=== PATIENT | female | born 1970 | race Caucasian/White ===

== ENCOUNTER → 2016-11-24 | Outpatient (CLI) | payer OTHER ==
[2014-08-14 14:38] VITALS: BP 112/65
[2016-11-24 20:46] LABS: ALBUMIN 3.9 g/dL (3.4-5.0); ALBUMIN/GLOBULIN RATIO 1.1 (1.0-1.7); CALCIUM 8.9 mg/dL (8.5-10.1); CHOLESTEROL/HDL RATIO 2.5; GFR 59.7; POTASSIUM 3.5 mmol/L (3.5-5.1); TOTAL BILIRUBIN 0.3 mg/dL (0.2-1.0); TOTAL PROTEIN 7.5 g/dL (6.4-8.2)
== END | disposition home or self-care (01) ==
LOC: LAB 16:38
PROVIDERS: ATTEND Psychiatry & Neurology Psychiatry
DX: Z79.899 Other long term (current) drug therapy (principal)
CPT/HCPCS: 36415; 80053; 80061; 84443

== ENCOUNTER → 2018-08-18 | Outpatient (CLI) | payer MEDICARE, OTHER ==
[2014-08-14 14:38] VITALS: BP 112/65
--- NOTE | 2018-08-18 09:41 | RAD ---
Indication:PELVIC PAIN, OVARIAN CYST TECHNIQUE: Grayscale, color Doppler and spectral waveform images of the pelvis obtained. COMPARISON:None FINDINGS: Uterus is surgically absent. Bilateral ovaries are not visualized due to significant bowel gas. No free pelvic fluid. IMPRESSION: Essentially nondiagnostic exam with nonvisualization of bilateral ovaries secondary to overlying bowel gas. Electronically signed by: Griffin Palmer DO (08/18/2018 9:37 AM) [id number]
--- NOTE | 2018-08-18 11:53 | RAD ---
DATE: 08/18/2018 EXAM: DIGITAL SCREEN BILAT W/CAD HISTORY: Routine screening COMPARISON: 02/05/2009 This study was interpreted with the benefit of Computerized Aided Detection (CAD). Breast Density: HETERO The breast parenchyma is heterogenously dense, which could reduce sensitivity of mammography. Breast parenchyma level C. FINDINGS: No new or enlarging breast densities are seen. No suspicious microcalcifications are evident. IMPRESSION: Stable mammograms without evidence of malignancy. BI-RADS CATEGORY: 1 NEGATIVE RECOMMENDED FOLLOW-UP: 12M 12 MONTH FOLLOW-UP PQRS compliance statement: Patient information was entered into a reminder system with a target due date for the next mammogram. Mammography is a sensitive method for finding small breast cancers, but it does not detect them all and is not a substitute for careful clinical examination. A negative mammogram does not negate a clinically suspicious finding and should not result in delay in biopsying a clinically suspicious abnormality. "Our facility is accredited by the [employer] Mammography Program."
== END | disposition home or self-care (01) ==
LOC: US 08:31
DX: Z12.31 Encounter for screening mammogram for malignant neoplasm of breast (principal); N83.209 Unspecified ovarian cyst, unspecified side; Z90.710 Acquired absence of both cervix and uterus
CPT/HCPCS: 76830; 76856; 77067

== ENCOUNTER 2019-03-18 03:39 | Inpatient (IN) | payer OTHER ==
[~2019-03-18] VITALS: Ht 167.6 cm; Wt 45.4 kg
[2019-03-18] VITALS (10 sets, daily range): BP systolic 97–124; BP diastolic 60–76
[2019-03-18 04:15] LABS: BASO # 0.1 x10^3/uL (0.0-0.2); BASO % 1 % (0-3); EOS # 0.3 x10^3/uL (0.0-0.7); EOS % 4 % (0-3); HEMATOCRIT 40.7 % (36.0-47.0); HEMOGLOBIN 13.6 g/dL (12.0-15.5); LYMPH # 3.2 x10^3/uL (1.0-4.8); LYMPH % 37 % (24-48); MEAN CORPUSCULAR HEMOGLOBIN 30 pg (25-35); MEAN CORPUSCULAR HGB CONC 33 g/dL (31-37); MEAN CORPUSCULAR VOLUME 91 fL (79-100); MONO # 0.9 x10^3/uL (0.0-1.1); MONO % 10 % (0-9); NEUT # 4.1 x10^3/uL (1.8-7.7); NEUT % 48 % (31-73); PLATELET COUNT 384 x10^3/uL (140-400); RED BLOOD COUNT 4.48 x10^6/uL (3.50-5.40); RED CELL DISTRIBUTION WIDTH 12.6 % (11.5-14.5); WHITE BLOOD COUNT 8.5 x10^3/uL (4.0-11.0)
[2019-03-18] MEDS ORDERED: ONDANSETRON PF 4 MG/2 ML VIAL. IV ONE (04:15)
[2019-03-18] MEDS ORDERED: fentaNYL PF VIAL 100 MCG/2 ML VIAL IV ONE ×2 (04:15→05:30)
[2019-03-18] MEDS ORDERED: IV NORMAL SALINE 1000ML BAG 1,000 ML IV ONE ×2 (04:15→09:00)
[2019-03-18 04:22] LABS: CALCIUM 8.9 mg/dL (8.5-10.1); CREATININE 0.8 mg/dL (0.6-1.0); GFR 76.6; POTASSIUM 4.1 mmol/L (3.5-5.1)
[2019-03-18 04:28] LABS: ALBUMIN 3.4 g/dL (3.4-5.0); TOTAL BILIRUBIN 0.1 mg/dL (0.2-1.0); TOTAL PROTEIN 6.9 g/dL (6.4-8.2)
[2019-03-18 04:37] LABS: BILIRUBIN,URINE NEGATIVE (NEG); CLARITY,URINE CLOUDY; COLOR,URINE YELLOW; NITRITE,URINE POSITIVE (NEG); PH,URINE 5.5; PROTEIN,URINE NEGATIVE (NEG-TRACE)
[2019-03-18 04:48] LABS: SQUAMOUS EPITHELIAL CELL,UR FEW /LPF
[2019-03-18 04:49] LABS: BACTERIA,URINE MANY /HPF (0-FEW); RBC,URINE 0 /HPF (0-2)
--- NOTE | 2019-03-18 05:35 | PHYS DOC ---
Past Medical History Past Medical History: Bipolar, Schizophrenia (REINIER FERRO MD) Past Surgical History: Other Additional Past Surgical Histo: HEMORRHOID REMOVAL (REINIER FERRO MD) Alcohol Use: Rarely Drug Use: None (REINIER FERRO MD) Adult General Chief Complaint Chief Complaint: ABDOMINAL PAIN HPI HPI Patient is a 48 year old f with hx of bipolar disorder p/w lower abdo discomfort vomting nausea. has been constipated took milk of magnesium at home on arrival to er had large volume loose stool in the bathroom (REINIER FERRO MD) Review of Systems Review of Systems Constitutional: Denies fever or chills [] Eyes: Denies change in visual acuity, redness, or eye pain [] Cardiovascular: No additional information not addressed in HPI [] GI: : Denies dysuria or hematuria [] Musculoskeletal: Denies back pain or joint pain [] Integument: Denies rash or skin lesions [] Neurologic: Denies headache, focal weakness or sensory changes [] Endocrine: Denies polyuria or polydipsia [] All other systems were reviewed and found to be within normal limits, except as documented in this note. (REINIER FERRO MD) Current Medications Current Medications Current Medications Medications (Trade) Dose Ordered Sig/Rosa Start Time Stop Time Status Last Admin Dose Admin Fentanyl Citrate (Fentanyl 2ml Vial) 50 mcg 1X ONCE 03/18/19 05:30 03/18/19 05:31 DC 03/18/19 05:50 50 MCG Info (CONTRAST GIVEN -- Rx MONITORING) 1 each PRN DAILY PRN 03/18/19 06:00 03/20/19 05:59 Iohexol (Omnipaque 300 Mg/ml) 75 ml 1X ONCE 03/18/19 05:45 03/18/19 05:57 DC 03/18/19 05:46 75 ML Ondansetron HCl (Zofran) 4 mg 1X ONCE 03/18/19 04:15 03/18/19 04:16 DC 03/18/19 04:24 4 MG Sodium Chloride 1,000 ml @ 1,000 mls/hr 1X ONCE 03/18/19 04:15 03/18/19 05:14 DC 03/18/19 04:25 1,000 MLS/HR Trimethoprim/ Sulfamethoxazole (Bactrim Ds) 1 tab 1X ONCE 03/18/19 05:45 03/18/19 05:46 DC 03/18/19 05:49 1 TAB (GORDO PEREZ MD) Allergies Allergies Allergies Coded Allergies Type Severity Reaction Last Updated Verified Penicillins Allergy Unknown 03/18/19 Yes (GORDO PEREZ MD) Physical Exam Physical Exam Constitutional: Well developed, well nourished, no acute distress, non-toxic appearance. [] HENT: Normocephalic, atraumatic, bilateral external ears normal, oropharynx dry, no oral exudates, nose normal. [] Eyes: PERRLA, EOMI, conjunctiva normal, no discharge. [] Neck: Normal range of motion, no tenderness, supple, no stridor. [] Cardiovascular:Heart rate regular rhythm, no murmur [] Lungs & Thorax: Bilateral breath sounds clear to auscultation [] Abdomen: Bowel sounds normal, soft, rlq ttp] mild Skin: Warm, dry, no erythema, no rash. [] Back: No tenderness, no CVA tenderness. [] Extremities: No tenderness, no cyanosis, no clubbing, ROM intact, no edema. [] Neurologic: Alert and oriented X 3, normal motor function, normal sensory functi on, no focal deficits noted. [] Psychologic: slightly odd affect. (REINIER FERRO MD) Current Patient Data Vital Signs Vital Signs Date Time Temp Pulse Resp B/P (MAP) Pulse Ox O2 Delivery O2 Flow Rate FiO2 03/18/19 06:05 56 115/75 (88) 96 Room Air 03/18/19 05:50 18 03/18/19 03:40 97.9 97.9 (GORDO PEREZ MD) Lab Values Laboratory Tests Test 03/18/19 03:45 03/18/19 03:55 Urine Collection Type Unknown Urine Color Yellow Urine Clarity Cloudy Urine pH 5.5 Urine Specific [place] 1.025 Urine Protein Negative mg/dL (NEG-TRACE) Urine Glucose (UA) Negative mg/dL (NEG) Urine Ketones (Stick) Negative mg/dL (NEG) Urine Blood Negative (NEG) Urine Nitrite Positive (NEG) Urine Bilirubin Negative (NEG) Urine Urobilinogen Dipstick 1.0 mg/dL (0.2 mg/dL) Urine Leukocyte Esterase Moderate (NEG) Urine RBC 0 /HPF (0-2) Urine WBC 11-20 /HPF (0-4) Urine Squamous Epithelial Cells Few /LPF Urine Calcium Phosphate Crystals /HPF Urine Bacteria Many /HPF (0-FEW) Urine Mucus Mod /LPF White Blood Count 8.5 x10^3/uL (4.0-11.0) Red Blood Count 4.48 x10^6/uL (3.50-5.40) Hemoglobin 13.6 g/dL (12.0-15.5) Hematocrit 40.7 % (36.0-47.0) Mean Corpuscular Volume 91 fL (79-100) Mean Corpuscular Hemoglobin 30 pg (25-35) Mean Corpuscular Hemoglobin Concent 33 g/dL (31-37) Red Cell Distribution Width 12.6 % (11.5-14.5) Platelet Count 384 x10^3/uL (140-400) Neutrophils (%) (Auto) 48 % (31-73) Lymphocytes (%) (Auto) 37 % (24-48) Monocytes (%) (Auto) 10 % (0-9) H Eosinophils (%) (Auto) 4 % (0-3) H Basophils (%) (Auto) 1 % (0-3) Neutrophils # (Auto) 4.1 x10^3/uL (1.8-7.7) Lymphocytes # (Auto) 3.2 x10^3/uL (1.0-4.8) Monocytes # (Auto) 0.9 x10^3/uL (0.0-1.1) Eosinophils # (Auto) 0.3 x10^3/uL (0.0-0.7) Basophils # (Auto) 0.1 x10^3/uL (0.0-0.2) Maternal Serum HCG Beta Subunit 1 mIU/mL (0-5) Sodium Level 145 mmol/L (136-145) Potassium Level 4.1 mmol/L (3.5-5.1) Chloride Level 108 mmol/L (98-107) H Carbon Dioxide Level 29 mmol/L (21-32) Anion Gap 8 (6-14) Blood Urea Nitrogen 16 mg/dL (7-20) Creatinine 0.8 mg/dL (0.6-1.0) Estimated GFR (Cockcroft-Gault) 76.6 BUN/Creatinine Ratio 20 (6-20) Glucose Level 101 mg/dL (70-99) H Calcium Level 8.9 mg/dL (8.5-10.1) Total Bilirubin 0.1 mg/dL (0.2-1.0) L Aspartate Amino Transferase (AST) 20 U/L (15-37) Alanine Aminotransferase (ALT) 20 U/L (14-59) Alkaline Phosphatase 120 U/L (46-116) H Total Protein 6.9 g/dL (6.4-8.2) Albumin 3.4 g/dL (3.4-5.0) Albumin/Globulin Ratio 1.0 (1.0-1.7) Lipase 170 U/L (73-393) Laboratory Tests 03/18/19 03:55 Laboratory Tests 03/18/19 03:55 (GORDO PEREZ MD) EKG EKG [] (REINIER FERRO MD) Radiology/Procedures Radiology/Procedures [] (REINIER FERRO MD) Radiology/Procedures [facility] [address] [place] [address] IMAGING REPORT Signed PATIENT: YANET GREEN ACCOUNT: [id number] : 1970 LOCATION: ER AGE: 48 SEX: F EXAM STATUS: REG ER ORD. PHYSICIAN: REINIER FERRO MD REASON: rlq pain, eval for appy. PROCEDURE: CT ABD PELV W/ IV CONTRST ONLY EXAM: CT ABDOMEN/PELVIS WITH CONTRAST. HISTORY: Right lower quadrant pain. TECHNIQUE: Computed tomography of the abdomen and pelvis was performed after the intravenous administration of iodinated contrast. COMPARISON: None. FINDINGS: Lung windows through the visualized portions of the bases reveal mild atelectasis. Bone windows reveal no suspicious lesions. Mild periportal edema may reflect intravenous rehydration. A calcified hepatic granuloma is noted. The spleen, gallbladder, pancreas, adrenal glands and right kidney are unremarkable. There is a 4 mm cyst in the left kidney. The uterus is surgically absent. Sigmoid diverticulosis is moderate. Stool throughout the colon is consistent with constipation. There is mild diffuse gaseous distention of the small bowel which may be normal or reflect mild ileus. The appendix is retrocecal. It is dilated to 1.4 cm and demonstrates wall thickening consistent with acute appendicitis. There is no drainable collection. IMPRESSION: 1. Acute appendicitis. 2. Findings consistent with constipation. Correlate for mild ileus. 3. Mild periportal edema can be an incidental finding the setting of intravenous rehydration. Correlate to exclude hepatic inflammation. *One or more of the following individualized dose reduction techniques were utilized for this examination: 1. Automated exposure control. 2. Adjustment of the mA and/or kV according to patient size. 3. Use of iterative reconstruction technique. Electronically signed by: Moni Johnson MD (03/18/2019 6:01 AM) [id number] DICTATED and SIGNED BY: LO JOHNSON MD DATE: 03/18/19600 (GORDO PEREZ MD) Course & Med Decision Making Course & Med Decision Making Pertinent Labs and Imaging studies reviewed. (See chart for details) []48 yo bipolar had hysterectomy p/w low abdo pain right side x one week with n/v. ddx includes appy nephrolithiasis uti s/o kousha pending ct result (REINEIR FERRO MD) Course & Med Decision Making CT showed acute appendicitis. Patient feels comfortable after pain medication ordered by .Patient requiring admission for further evaluation and treatment. Discussed with Dr. Vigil at 0619who is in agreement with admission. Discussed findings and plan with patient and family, who acknowledge understanding and agreement. Call surgeon Dr. Jurado was consulted at 0 [phone] and recommended to start Flagyl. (GORDO PEREZ MD) Dragon Disclaimer Dragon Disclaimer This electronic medical record was generated, in whole or in part, using a voice recognition dictation system. (REINIER FERRO MD) Departure Departure Impression: Primary Impression: Acute appendicitis Disposition: ADMITTED INPATIENT (at 0 621) Admitting Physician: HIMS (Dr. Vigil accepted admission at 0619) (GORDO PEREZ MD) Condition: IMPROVED Referrals: UNKNOWN PCP NAME (PCP) Problem Qualifiers Primary Impression: Acute appendicitis Acute appendicitis type: unspecified acute appendicitis type Qualified Codes: K35.80 - Unspecified acute appendicitis REINIER FERRO MD Mar 18, 2019 05:35 GORDO PEREZ MD Mar 18, 2019 06:21
[2019-03-18] MEDS ORDERED: IOHEXOL 300 MG/ML 100ML VIAL. IV ONE (05:45)
[2019-03-18] MEDS ORDERED: SMZ/TMP 800/160MG TABLET. PO ONE (05:45)
[2019-03-18] MEDS ORDERED: CONTRAST GIVEN. MC PRN (06:00)
--- NOTE | 2019-03-18 06:03 | RAD ---
EXAM: CT ABDOMEN/PELVIS WITH CONTRAST. HISTORY: Right lower quadrant pain. TECHNIQUE: Computed tomography of the abdomen and pelvis was performed after the intravenous administration of iodinated contrast. COMPARISON: None. FINDINGS: Lung windows through the visualized portions of the bases reveal mild atelectasis. Bone windows reveal no suspicious lesions. Mild periportal edema may reflect intravenous rehydration. A calcified hepatic granuloma is noted. The spleen, gallbladder, pancreas, adrenal glands and right kidney are unremarkable. There is a 4 mm cyst in the left kidney. The uterus is surgically absent. Sigmoid diverticulosis is moderate. Stool throughout the colon is consistent with constipation. There is mild diffuse gaseous distention of the small bowel which may be normal or reflect mild ileus. The appendix is retrocecal. It is dilated to 1.4 cm and demonstrates wall thickening consistent with acute appendicitis. There is no drainable collection. IMPRESSION: 1. Acute appendicitis. 2. Findings consistent with constipation. Correlate for mild ileus. 3. Mild periportal edema can be an incidental finding the setting of intravenous rehydration. Correlate to exclude hepatic inflammation. *One or more of the following individualized dose reduction techniques were utilized for this examination: 1. Automated exposure control. 2. Adjustment of the mA and/or kV according to patient size. 3. Use of iterative reconstruction technique. Electronically signed by: Moni Johnson MD (03/18/2019 6:01 AM) [facility]
[2019-03-18] MEDS ORDERED: fentaNYL PF VIAL 100 MCG/2 ML VIAL IV PRN ×3 (06:45→10:00)
[2019-03-18] MEDS ORDERED: ONDANSETRON PF 4 MG/2 ML VIAL. IV PRN ×3 (06:45→12:15)
--- NOTE | 2019-03-18 07:55 | NUR ---
Consult called to Dr. Jurado for acute appendicitis.
[2019-03-18] MEDS ORDERED: POLYETHYLENE GLYCOL 3350 17 GM PACKET. PO PRN (09:00)
[2019-03-18] MEDS ORDERED: SALIVA STIMULANT AGENT 44ML SPRAY BOTTLE. PO PRN (09:00)
[2019-03-18] MEDS ORDERED: DOCUSATE SODIUM 100 MG CAPSULE. PO SCH (09:00)
[2019-03-18] MEDS: POLYETHYLENE GLYCOL 3350 17 GM PACKET. PO SCH (09:00)
--- NOTE | 2019-03-18 09:04 | PDOC1 ---
History and Physical Date of Admission Date of Admission DATE: 03/18/19 TIME: 09:00 Source Source: Chart review, Patient History of Present Illness History of Present Illness Ms. Boyd, is a 48 year old female, admit with acute abd pain. with hx of bipolar disorder p/w lower abdo discomfort vomting nausea. has been constipated took milk of magnesium at home on arrival to er had large volume loose stool in the bathroom Past Medical History Cardiovascular: No pertinent hx Pulmonary: No pertinent hx GI: Constipation Heme/Onc: No pertinent hx Psych: Anxiety, Addictions, Bipolar Musculoskeletal: low back pain Social History Smoke: 1 pack per day ALCOHOL: none Drugs: None Current Medications Current Medications Current Medications Sodium Chloride 1,000 ml @ 1,000 mls/hr 1X ONCE IV Last administered on 03/18/19at 04:25; Start 03/18/19 at 04:15; Stop 03/18/19 at 05:14; Status DC Ondansetron HCl (Zofran) 4 mg 1X ONCE IV Last administered on 03/18/19at 04:24; Start 03/18/19 at 04:15; Stop 03/18/19 at 04:16; Status DC Fentanyl Citrate (Fentanyl 2ml Vial) 50 mcg 1X ONCE IV Last administered on 03/18/19at 04:24; Start 03/18/19 at 04:15; Stop 03/18/19 at 04:16; Status DC Fentanyl Citrate (Fentanyl 2ml Vial) 50 mcg 1X ONCE IV Last administered on 03/18/19at 05:50; Start 03/18/19 at 05:30; Stop 03/18/19 at 05:31; Status DC Trimethoprim/ Sulfamethoxazole (Bactrim Ds) 1 tab 1X ONCE PO Last administered on 03/18/19at 05:49; Start 03/18/19 at 05:45; Stop 03/18/19 at 05:46; Status DC Iohexol (Omnipaque 300 Mg/ml) 75 ml 1X ONCE IV Last administered on 03/18/19at 05:46; Start 03/18/19 at 05:45; Stop 03/18/19 at 05:57; Status DC Info (CONTRAST GIVEN -- Rx MONITORING) 1 each PRN DAILY PRN MC SEE COMMENTS; Start 03/18/19 at 06:00; Stop 03/20/19 at 05:59 Metronidazole 100 ml @ 100 mls/hr 1X ONCE IV Last administered on 03/18/19at 07:42; Start 03/18/19 at 06:30; Stop 03/18/19 at 07:29; Status DC Ondansetron HCl (Zofran) 4 mg PRN Q8HRS PRN IV NAUSEA/VOMITING; Start 03/18/19 at 06:45; Stop 03/18/19 at 09:00 Fentanyl Citrate (Fentanyl 2ml Vial) 50 mcg PRN Q2HR PRN IV PAIN Last administered on 03/18/19at 07:42; Start 03/18/19 at 06:45 Ceftriaxone Sodium (Rocephin) 1 gm Q24H IVP ; Start 03/18/19 at 09:00; Status UNV Docusate Sodium (Colace) 100 mg DAILY PO ; Start 03/18/19 at 09:00; Status UNV Polyethylene Glycol (miraLAX PACKET) 17 gm PRN DAILY PRN PO CONSTIPATION; Start 03/18/19 at 09:00; Status UNV Polyethylene Glycol (miraLAX PACKET) 17 gm DAILY PO ; Start 03/18/19 at 09:00; Status UNV Cefazolin Sodium/ Dextrose 50 ml @ 100 mls/hr 1X PREOP PRN IV protocol; Start 03/18/19 at 10:00; Stop 03/19/19 at 18:00; Status UNV Saliva Substitute (Biotene Moisturizing Mouth) 2 spray PRN Q15MIN PRN PO DRY MOUTH; Start 03/18/19 at 09:00; Status UNV Sodium Chloride 1,000 ml @ 125 mls/hr 1X ONCE IV ; Start 03/18/19 at 09:00; Stop 03/18/19 at 16:59; Status UNV Allergies Allergies: Coded Allergies: Penicillins (Verified Allergy, Unknown, 03/18/19) ROS General: No: Chills, Night Sweats, Fatigue, Malaise, Appetite, Other PSYCHOLOGICAL ROS: No: Anxiety, Behavioral Disorder, Concentration difficultie, Decreased libido, Depression, Disorientation, Hallucinations, Hostility, Irritablity, Memory difficulties, Mood Swings, Obsessive thoughts, Physical abuse, Sexual abuse, Sleep disturbances, Suicidal ideation, Other Eyes: No Blurry vision, No Decreased vision, No Double vision, No Dry eyes, No Excessive tearing, No Eye Pain, No Itchy Eyes, No Loss of vision, No Photophobia, No Scotomata, No Uses contacts, No Uses glasses, No Other HEENT: YES: Heacaches Respiratory: No: Cough, Hemoptysis, Orthopnea, Pleuritic Pain, Shortness of breath, SOB with excertion, Sputum Changes, Stridor, Tachypnea, Wheezing, Other Cardiovascular: No Chest Pain, No Palpitations, No Orthopnea, No Paroxysmal Noc. Dyspnea, No Edema, No Lt Headedness, No Other Gastrointestinal: Yes Nausea, Yes Abdominal Pain, Yes Constipation; No Vomiting, No Diarrhea, No Melena, No Hematochezia, No Other Genitourinary: No Dysuria, No Frequency, No Incontinence, No Hematuria, No Retention, No Discharge, No Urgency, No Pain, No Flank Pain, No Other, No , No , No , No , No , No , No Musculoskeletal: No Gait Disturbance, No Joint Pain, No Joint Stiffness, No Joint Swelling, No Muscle Pain, No Muscular Weakness, No Pain In:, No Swelling In:, No Other Neurological: No Behavorial Changes, No Bowel/Bladder ControlChng, No Confusion, No Dizziness, No Gait Disturbance, No Headaches, No Impaired Coord/balance, No Memory Loss, No Numbness/Tingling, No Seizures, No Speech Problems, No Tremors, No Visual Changes, No Weakness, No Other Skin: No Dry Skin, No Eczema, No Hair Changes, No Lumps, No Mole Changes, No Mottling, No Nail Changes, No Pruritus, No Rash, No Skin Lesion Changes, No Other, No Acne Physical Exam General: Alert, Oriented X3, Cooperative, No acute distress HEENT: Atraumatic, PERRLA, EOMI Lungs: Clear to auscultation, Normal air movement Heart: S1S2, no gallops, no murmurs Abdomen: Normal bowel sounds, Soft Rectal Exam: not examined Extremities: No clubbing, Normal pulses Skin: No rashes, No breakdown, No significant lesion Neuro: Normal speech, Normal tone, Sensation intact, Cranial nerves 3-12 NL Psych/Mental Status: Mental status NL, Mood NL Vitals Vitals Vital Signs Date Time Temp Pulse Resp B/P (MAP) Pulse Ox O2 Delivery O2 Flow Rate FiO2 03/18/19 07:42 Room Air 03/18/19 06:05 56 115/75 (88) 96 03/18/19 05:50 18 03/18/19 03:40 97.9 97.9 Labs Labs Laboratory Tests Test 03/18/19 03:45 03/18/19 03:55 Urine Collection Type Unknown Urine Color Yellow Urine Clarity Cloudy Urine pH 5.5 Urine Specific [place] 1.025 Urine Protein Negative mg/dL (NEG-TRACE) Urine Glucose (UA) Negative mg/dL (NEG) Urine Ketones (Stick) Negative mg/dL (NEG) Urine Blood Negative (NEG) Urine Nitrite Positive (NEG) Urine Bilirubin Negative (NEG) Urine Urobilinogen Dipstick 1.0 mg/dL (0.2 mg/dL) Urine Leukocyte Esterase Moderate (NEG) Urine RBC 0 /HPF (0-2) Urine WBC 11-20 /HPF (0-4) Urine Squamous Epithelial Cells Few /LPF Urine Calcium Phosphate Crystals /HPF Urine Bacteria Many /HPF (0-FEW) Urine Mucus Mod /LPF White Blood Count 8.5 x10^3/uL (4.0-11.0) Red Blood Count 4.48 x10^6/uL (3.50-5.40) Hemoglobin 13.6 g/dL (12.0-15.5) Hematocrit 40.7 % (36.0-47.0) Mean Corpuscular Volume 91 fL (79-100) Mean Corpuscular Hemoglobin 30 pg (25-35) Mean Corpuscular Hemoglobin Concent 33 g/dL (31-37) Red Cell Distribution Width 12.6 % (11.5-14.5) Platelet Count 384 x10^3/uL (140-400) Neutrophils (%) (Auto) 48 % (31-73) Lymphocytes (%) (Auto) 37 % (24-48) Monocytes (%) (Auto) 10 % (0-9) Eosinophils (%) (Auto) 4 % (0-3) Basophils (%) (Auto) 1 % (0-3) Neutrophils # (Auto) 4.1 x10^3/uL (1.8-7.7) Lymphocytes # (Auto) 3.2 x10^3/uL (1.0-4.8) Monocytes # (Auto) 0.9 x10^3/uL (0.0-1.1) Eosinophils # (Auto) 0.3 x10^3/uL (0.0-0.7) Basophils # (Auto) 0.1 x10^3/uL (0.0-0.2) Maternal Serum HCG Beta Subunit 1 mIU/mL (0-5) Sodium Level 145 mmol/L (136-145) Potassium Level 4.1 mmol/L (3.5-5.1) Chloride Level 108 mmol/L (98-107) Carbon Dioxide Level 29 mmol/L (21-32) Anion Gap 8 (6-14) Blood Urea Nitrogen 16 mg/dL (7-20) Creatinine 0.8 mg/dL (0.6-1.0) Estimated GFR (Cockcroft-Gault) 76.6 BUN/Creatinine Ratio 20 (6-20) Glucose Level 101 mg/dL (70-99) Calcium Level 8.9 mg/dL (8.5-10.1) Total Bilirubin 0.1 mg/dL (0.2-1.0) Aspartate Amino Transf (AST/SGOT) 20 U/L (15-37) Alanine Aminotransferase (ALT/SGPT) 20 U/L (14-59) Alkaline Phosphatase 120 U/L (46-116) Total Protein 6.9 g/dL (6.4-8.2) Albumin 3.4 g/dL (3.4-5.0) Albumin/Globulin Ratio 1.0 (1.0-1.7) Lipase 170 U/L (73-393) Laboratory Tests Test 03/18/19 03:45 03/18/19 03:55 Urine Collection Type Unknown Urine Color Yellow Urine Clarity Cloudy Urine pH 5.5 Urine Specific [place] 1.025 Urine Protein Negative mg/dL (NEG-TRACE) Urine Glucose (UA) Negative mg/dL (NEG) Urine Ketones (Stick) Negative mg/dL (NEG) Urine Blood Negative (NEG) Urine Nitrite Positive (NEG) Urine Bilirubin Negative (NEG) Urine Urobilinogen Dipstick 1.0 mg/dL (0.2 mg/dL) Urine Leukocyte Esterase Moderate (NEG) Urine RBC 0 /HPF (0-2) Urine WBC 11-20 /HPF (0-4) Urine Squamous Epithelial Cells Few /LPF Urine Calcium Phosphate Crystals /HPF Urine Bacteria Many /HPF (0-FEW) Urine Mucus Mod /LPF White Blood Count 8.5 x10^3/uL (4.0-11.0) Red Blood Count 4.48 x10^6/uL (3.50-5.40) Hemoglobin 13.6 g/dL (12.0-15.5) Hematocrit 40.7 % (36.0-47.0) Mean Corpuscular Volume 91 fL (79-100) Mean Corpuscular Hemoglobin 30 pg (25-35) Mean Corpuscular Hemoglobin Concent 33 g/dL (31-37) Red Cell Distribution Width 12.6 % (11.5-14.5) Platelet Count 384 x10^3/uL (140-400) Neutrophils (%) (Auto) 48 % (31-73) Lymphocytes (%) (Auto) 37 % (24-48) Monocytes (%) (Auto) 10 % (0-9) Eosinophils (%) (Auto) 4 % (0-3) Basophils (%) (Auto) 1 % (0-3) Neutrophils # (Auto) 4.1 x10^3/uL (1.8-7.7) Lymphocytes # (Auto) 3.2 x10^3/uL (1.0-4.8) Monocytes # (Auto) 0.9 x10^3/uL (0.0-1.1) Eosinophils # (Auto) 0.3 x10^3/uL (0.0-0.7) Basophils # (Auto) 0.1 x10^3/uL (0.0-0.2) Maternal Serum HCG Beta Subunit 1 mIU/mL (0-5) Sodium Level 145 mmol/L (136-145) Potassium Level 4.1 mmol/L (3.5-5.1) Chloride Level 108 mmol/L (98-107) Carbon Dioxide Level 29 mmol/L (21-32) Anion Gap 8 (6-14) Blood Urea Nitrogen 16 mg/dL (7-20) Creatinine 0.8 mg/dL (0.6-1.0) Estimated GFR (Cockcroft-Gault) 76.6 BUN/Creatinine Ratio 20 (6-20) Glucose Level 101 mg/dL (70-99) Calcium Level 8.9 mg/dL (8.5-10.1) Total Bilirubin 0.1 mg/dL (0.2-1.0) Aspartate Amino Transf (AST/SGOT) 20 U/L (15-37) Alanine Aminotransferase (ALT/SGPT) 20 U/L (14-59) Alkaline Phosphatase 120 U/L (46-116) Total Protein 6.9 g/dL (6.4-8.2) Albumin 3.4 g/dL (3.4-5.0) Albumin/Globulin Ratio 1.0 (1.0-1.7) Lipase 170 U/L (73-393) VTE Prophylaxis Ordered VTE Prophylaxis Devices: Yes VTE Pharmacological Prophylaxi: No Assessment/Plan Assessment/Plan acute abdominal pain acute appendicitis UTI sepsis weakness bipolar disorder, seems stable tobacco use disorder admit, IV abx, flagyl given, will give rocephin gen surg consult, to OR today nicotine repalcement IV pain meds IV fluid MELIZA MANCUSO MD Mar 18, 2019 09:04
--- NOTE | 2019-03-18 09:04 | PDOC2 ---
CONSULT Date of Consult Date of Consult DATE: 03/18/19 TIME: 08:56 Reason for Consult Reason for Consult: acute appendicitis Referring Physician Referring Physician: Dr Vigil Identification/Chief Complaint Chief Complaint RLQ pain Source Source: Chart review, Patient History of Present Illness Reason for Visit: Melissa is a 48 yo female with a week hx of abdominal pain. CT in the ED this AM is consistent with an acute appendicitis. Past Medical History Cardiovascular: No pertinent hx Pulmonary: No pertinent hx GI: Hemorrhoids Psych: Bipolar Past Surgical History Past Surgical History: Hysterectomy, Other (hemorrhoidectomy) Family History Family History: No Significant Social History <1 pack per day ALCOHOL: rare Current Medications Current Medications Current Medications Sodium Chloride 1,000 ml @ 1,000 mls/hr 1X ONCE IV Last administered on 03/18/19at 04:25; Start 03/18/19 at 04:15; Stop 03/18/19 at 05:14; Status DC Ondansetron HCl (Zofran) 4 mg 1X ONCE IV Last administered on 03/18/19at 04:24; Start 03/18/19 at 04:15; Stop 03/18/19 at 04:16; Status DC Fentanyl Citrate (Fentanyl 2ml Vial) 50 mcg 1X ONCE IV Last administered on 03/18/19at 04:24; Start 03/18/19 at 04:15; Stop 03/18/19 at 04:16; Status DC Fentanyl Citrate (Fentanyl 2ml Vial) 50 mcg 1X ONCE IV Last administered on 03/18/19at 05:50; Start 03/18/19 at 05:30; Stop 03/18/19 at 05:31; Status DC Trimethoprim/ Sulfamethoxazole (Bactrim Ds) 1 tab 1X ONCE PO Last administered on 03/18/19at 05:49; Start 03/18/19 at 05:45; Stop 03/18/19 at 05:46; Status DC Iohexol (Omnipaque 300 Mg/ml) 75 ml 1X ONCE IV Last administered on 03/18/19at 05:46; Start 03/18/19 at 05:45; Stop 03/18/19 at 05:57; Status DC Info (CONTRAST GIVEN -- Rx MONITORING) 1 each PRN DAILY PRN MC SEE COMMENTS; Start 03/18/19 at 06:00; Stop 03/20/19 at 05:59 Metronidazole 100 ml @ 100 mls/hr 1X ONCE IV Last administered on 03/18/19at 07:42; Start 03/18/19 at 06:30; Stop 03/18/19 at 07:29; Status DC Ondansetron HCl (Zofran) 4 mg PRN Q8HRS PRN IV NAUSEA/VOMITING; Start 03/18/19 at 06:45; Stop 03/18/19 at 09:00 Fentanyl Citrate (Fentanyl 2ml Vial) 50 mcg PRN Q2HR PRN IV PAIN Last administered on 03/18/19at 07:42; Start 03/18/19 at 06:45 Allergies Allergies: Coded Allergies: Penicillins (Verified Allergy, Unknown, 03/18/19) ROS General: YES: Chills Gastrointestinal: Yes Nausea, Yes Abdominal Pain Physical Exam General: Alert, Oriented X3, No acute distress HEENT: Atraumatic Lungs: Normal air movement Heart: Regular rate Abdomen: Soft, Other (TTP in the RLQ) Skin: Other (warm, dry) Vitals VITALS Vital Signs Date Time Temp Pulse Resp B/P (MAP) Pulse Ox O2 Delivery O2 Flow Rate FiO2 03/18/19 07:42 Room Air 03/18/19 06:05 56 115/75 (88) 96 03/18/19 05:50 18 03/18/19 03:40 97.9 97.9 Labs Labs Laboratory Tests Test 03/18/19 03:45 03/18/19 03:55 Urine Collection Type Unknown Urine Color Yellow Urine Clarity Cloudy Urine pH 5.5 Urine Specific [place] 1.025 Urine Protein Negative mg/dL (NEG-TRACE) Urine Glucose (UA) Negative mg/dL (NEG) Urine Ketones (Stick) Negative mg/dL (NEG) Urine Blood Negative (NEG) Urine Nitrite Positive (NEG) Urine Bilirubin Negative (NEG) Urine Urobilinogen Dipstick 1.0 mg/dL (0.2 mg/dL) Urine Leukocyte Esterase Moderate (NEG) Urine RBC 0 /HPF (0-2) Urine WBC 11-20 /HPF (0-4) Urine Squamous Epithelial Cells Few /LPF Urine Calcium Phosphate Crystals /HPF Urine Bacteria Many /HPF (0-FEW) Urine Mucus Mod /LPF White Blood Count 8.5 x10^3/uL (4.0-11.0) Red Blood Count 4.48 x10^6/uL (3.50-5.40) Hemoglobin 13.6 g/dL (12.0-15.5) Hematocrit 40.7 % (36.0-47.0) Mean Corpuscular Volume 91 fL (79-100) Mean Corpuscular Hemoglobin 30 pg (25-35) Mean Corpuscular Hemoglobin Concent 33 g/dL (31-37) Red Cell Distribution Width 12.6 % (11.5-14.5) Platelet Count 384 x10^3/uL (140-400) Neutrophils (%) (Auto) 48 % (31-73) Lymphocytes (%) (Auto) 37 % (24-48) Monocytes (%) (Auto) 10 % (0-9) Eosinophils (%) (Auto) 4 % (0-3) Basophils (%) (Auto) 1 % (0-3) Neutrophils # (Auto) 4.1 x10^3/uL (1.8-7.7) Lymphocytes # (Auto) 3.2 x10^3/uL (1.0-4.8) Monocytes # (Auto) 0.9 x10^3/uL (0.0-1.1) Eosinophils # (Auto) 0.3 x10^3/uL (0.0-0.7) Basophils # (Auto) 0.1 x10^3/uL (0.0-0.2) Maternal Serum HCG Beta Subunit 1 mIU/mL (0-5) Sodium Level 145 mmol/L (136-145) Potassium Level 4.1 mmol/L (3.5-5.1) Chloride Level 108 mmol/L (98-107) Carbon Dioxide Level 29 mmol/L (21-32) Anion Gap 8 (6-14) Blood Urea Nitrogen 16 mg/dL (7-20) Creatinine 0.8 mg/dL (0.6-1.0) Estimated GFR (Cockcroft-Gault) 76.6 BUN/Creatinine Ratio 20 (6-20) Glucose Level 101 mg/dL (70-99) Calcium Level 8.9 mg/dL (8.5-10.1) Total Bilirubin 0.1 mg/dL (0.2-1.0) Aspartate Amino Transf (AST/SGOT) 20 U/L (15-37) Alanine Aminotransferase (ALT/SGPT) 20 U/L (14-59) Alkaline Phosphatase 120 U/L (46-116) Total Protein 6.9 g/dL (6.4-8.2) Albumin 3.4 g/dL (3.4-5.0) Albumin/Globulin Ratio 1.0 (1.0-1.7) Lipase 170 U/L (73-393) Laboratory Tests Test 03/18/19 03:45 03/18/19 03:55 Urine Collection Type Unknown Urine Color Yellow Urine Clarity Cloudy Urine pH 5.5 Urine Specific [place] 1.025 Urine Protein Negative mg/dL (NEG-TRACE) Urine Glucose (UA) Negative mg/dL (NEG) Urine Ketones (Stick) Negative mg/dL (NEG) Urine Blood Negative (NEG) Urine Nitrite Positive (NEG) Urine Bilirubin Negative (NEG) Urine Urobilinogen Dipstick 1.0 mg/dL (0.2 mg/dL) Urine Leukocyte Esterase Moderate (NEG) Urine RBC 0 /HPF (0-2) Urine WBC 11-20 /HPF (0-4) Urine Squamous Epithelial Cells Few /LPF Urine Calcium Phosphate Crystals /HPF Urine Bacteria Many /HPF (0-FEW) Urine Mucus Mod /LPF White Blood Count 8.5 x10^3/uL (4.0-11.0) Red Blood Count 4.48 x10^6/uL (3.50-5.40) Hemoglobin 13.6 g/dL (12.0-15.5) Hematocrit 40.7 % (36.0-47.0) Mean Corpuscular Volume 91 fL (79-100) Mean Corpuscular Hemoglobin 30 pg (25-35) Mean Corpuscular Hemoglobin Concent 33 g/dL (31-37) Red Cell Distribution Width 12.6 % (11.5-14.5) Platelet Count 384 x10^3/uL (140-400) Neutrophils (%) (Auto) 48 % (31-73) Lymphocytes (%) (Auto) 37 % (24-48) Monocytes (%) (Auto) 10 % (0-9) Eosinophils (%) (Auto) 4 % (0-3) Basophils (%) (Auto) 1 % (0-3) Neutrophils # (Auto) 4.1 x10^3/uL (1.8-7.7) Lymphocytes # (Auto) 3.2 x10^3/uL (1.0-4.8) Monocytes # (Auto) 0.9 x10^3/uL (0.0-1.1) Eosinophils # (Auto) 0.3 x10^3/uL (0.0-0.7) Basophils # (Auto) 0.1 x10^3/uL (0.0-0.2) Maternal Serum HCG Beta Subunit 1 mIU/mL (0-5) Sodium Level 145 mmol/L (136-145) Potassium Level 4.1 mmol/L (3.5-5.1) Chloride Level 108 mmol/L (98-107) Carbon Dioxide Level 29 mmol/L (21-32) Anion Gap 8 (6-14) Blood Urea Nitrogen 16 mg/dL (7-20) Creatinine 0.8 mg/dL (0.6-1.0) Estimated GFR (Cockcroft-Gault) 76.6 BUN/Creatinine Ratio 20 (6-20) Glucose Level 101 mg/dL (70-99) Calcium Level 8.9 mg/dL (8.5-10.1) Total Bilirubin 0.1 mg/dL (0.2-1.0) Aspartate Amino Transf (AST/SGOT) 20 U/L (15-37) Alanine Aminotransferase (ALT/SGPT) 20 U/L (14-59) Alkaline Phosphatase 120 U/L (46-116) Total Protein 6.9 g/dL (6.4-8.2) Albumin 3.4 g/dL (3.4-5.0) Albumin/Globulin Ratio 1.0 (1.0-1.7) Lipase 170 U/L (73-393) Images Images CT done earlier is reviewed Assessment/Plan Assessment/Plan acute appendicitis bipolar disease explained risks of l/s appendectomy to Melissa and her best friend Dejah who is at the bedside including but not limited to bleeding, infection, injury to bowel, bladder, liver, possible open procedure she will proceed Thanks for consult BEV MODI MD Mar 18, 2019 09:04
[2019-03-18] MEDS ORDERED: NICOTINE 21MG PATCH. TD PRN (09:15)
[2019-03-18] MEDS ORDERED: NICOTINE POLACRILEX 2MG GUM PACKAGE of 12. BC PRN (09:15)
[2019-03-18] MEDS: MORPHINE SULFATE 4 MG/ML VIAL. IV PRN ×2 (09:45→17:37)
[2019-03-18] MEDS ORDERED: IV RINGERS,LACTATED 1000ML 1,000 ML IV SCH (09:50)
[2019-03-18] MEDS ORDERED: MORPHINE SULFATE 2 MG/ML VIAL. IV PRN (10:00)
[2019-03-18] MEDS ORDERED: HYDROmorphone 2 MG/ML VIAL IV PRN ×2 (10:00→12:15)
[2019-03-18] MEDS ORDERED: PROCHLORPERAZINE 10 MG/2 ML VIAL. IV PRN (10:00)
[2019-03-18] MEDS ORDERED: BUPIVACAINE-EPI 0.5%-1:200000 MPF 30 ML VIAL. INJ ONE (10:00)
[2019-03-18] MEDS ORDERED: LIDOCAINE 1% PF 2 ML VIAL. ID PRN (10:00)
[2019-03-18] MEDS ORDERED: MIDAZOLAM HCL/PF 2 MG/2 ML VIAL. ONE (10:05)
[2019-03-18] MEDS ORDERED: DEXAMETHASONE SOD PHOS 4 MG/ML VIAL ONE (10:06)
[2019-03-18] MEDS ORDERED: LIDOCAINE 2% PF 5 ML VIAL. ONE (10:06)
[2019-03-18] MEDS ORDERED: fentaNYL PF VIAL 100 MCG/2 ML VIAL ONE ×2 (10:06→11:42)
[2019-03-18] MEDS ORDERED: ONDANSETRON PF 4 MG/2 ML VIAL. ONE (10:06)
[2019-03-18] MEDS ORDERED: ROCURONIUM 50 MG/5 ML VIAL. ONE (10:06)
[2019-03-18] MEDS ORDERED: SUCCINYLCHOLINE 200 MG/10 ML VIAL. ONE (10:06)
[2019-03-18] MEDS ORDERED: PROPOFOL 20 ML IV ONE (10:06)
[2019-03-18] MEDS: cefTRIAXone IV Push 1 GM VIAL. IVP SCH (10:45)
[2019-03-18] MEDS ORDERED: CLON1TAB12 PO (11:07)
[2019-03-18] MEDS ORDERED: [UNRECOGNIZED DRUG - OTHER] PO (11:07)
[2019-03-18] MEDS ORDERED: NEOSTIGMINE METHYLSULFATE 5 MG/5 ML SYRINGE. ONE (11:39)
[2019-03-18] MEDS ORDERED: GLYCOPYRROLATE 1 MG/5 ML VIAL. ONE (11:39)
[2019-03-18] MEDS ORDERED: PROCHLORPERAZINE 10 MG/2 ML VIAL. ONE (11:42)
[2019-03-18] MEDS ORDERED: SEVOFLURANE 61 TO 120 MINUTES. IH ONE (11:58)
[2019-03-18] MEDS: IV NORMAL SALINE 1000ML BAG 1,000 ML IV SCH (12:05)
--- NOTE | 2019-03-18 12:13 | PDOC ---
BRIEF OPERATIVE NOTE Date: Mar 18, 2019 Pre-Op Diagnosis acute appendicitis Post-Op Diagnosis same Procedure Performed l/s appendectomy Surgeon Adrien Anesthesia Type: General Blood Loss 5cc IV Fluid 1100cc Urine Output 275cc Specimens Obtained appendix Findings acute retrocecal appendicitis without evidence of rupture Complications none Operative Note Wk # [id number] BEV MODI MD Mar 18, 2019 12:13
[2019-03-18] MEDS ORDERED: NALOXONE 0.4 MG/ML VIAL. IV PRN (12:15)
[2019-03-18] MEDS ORDERED: 0.9 % SODIUM CHLORIDE 10 ML DISP.SYRIN. IV PRN (12:15)
[2019-03-18] MEDS ORDERED: DEXTROSE 50% 25 GM / 50ML DISP.SYRIN. IV PRN (12:15)
[2019-03-18] MEDS ORDERED: ENOXAPARIN 40 MG/0.4 ML SYRINGE. SQ SCH (12:15)
--- NOTE | 2019-03-18 12:34 | OP ---
DATE OF SURGERY: 03/18/2019 PREOPERATIVE DIAGNOSIS: Acute appendicitis. POSTOPERATIVE DIAGNOSIS: Acute appendicitis. PROCEDURE: Laparoscopic appendectomy. SURGEON: Bev Modi MD. ANESTHESIA: General endotracheal. ESTIMATED BLOOD LOSS: 5 mL. INTRAVENOUS FLUIDS: 1100 mL. URINE OUTPUT: 275 mL. INDICATIONS: The patient is a 48-year-old with right-sided abdominal pain and a CT suggesting appendicitis. She is brought for appendectomy. OPERATIVE FINDINGS: She did have an acute appendicitis, which was retrocecal headed north with the tip just under the liver. Visual inspection of the remainder of the abdomen showed an absence of her uterus. No other abnormalities. DESCRIPTION OF PROCEDURE: The patient was brought to the operating suite, given a general endotracheal anesthetic. Maya catheter was placed to dependent drainage. The abdomen was prepped and draped in the usual sterile fashion. A supraumbilical incision was infiltrated with local anesthetic, incised and a 5-mm Visiport was used to safely gain access into the abdominal cavity, taking care to avoid injury to abdominal contents. Pneumoperitoneum was established. Camera was inserted. Inspection was carried out with results as noted above. With the table in Trendelenburg rolled to the left, the suprapubic and left lower quadrant ports were placed under direct vision. Umbilical port converted to 12 mm for instrumentation. The distal small bowel and proximal colon were carefully reflected off the lateral abdominal wall by taking down the white line with LigaSure, being careful to avoid injury to the bowel. This allowed visualization of the appendix. It was grasped and a window created at the base of appendix to allow passage of the Endo-DM stapler with a tissue load to amputate the appendix. A vascular load for the mesoappendix and the appendix was placed in an EndoCatch bag. Pneumoperitoneum reduced to 6 cm intraabdominal pressure. No bleeding from the appendiceal stump or from the mesoappendix was seen. Table returned to the level. Appendix delivered through the umbilical incision. Umbilical incision was closed with 0 Vicryl suture. At 6 cm of water, no bleeding from the umbilical port closure site or from the left lower quadrant port site after its removal. Skin incisions closed with subcuticular 4-0 Monocryl. Steri-Strips and sterile dressings were applied. Maya catheter removed. The patient was awakened from her anesthetic and taken to the recovery room in satisfactory condition. BEV MODI MD DR: Bakari JOB#: [id number] / [id number]
[2019-03-18] MEDS: POTASSIUM CL 20MEQ-0.45% NACL 1,000 ML IV SCH ×2 (13:54→21:32)
[2019-03-18] MEDS ORDERED: INFLUENZA VAX SCREEN BY RX. MC PRN (15:30)
[2019-03-18] MEDS ORDERED: FLU VAX QS 2019-20 (36MOS+)/PF 0.5 ML SYRINGE. VAX IM ONE (15:30)
--- NOTE | 2019-03-18 19:12 | NUR ---
Pt's home med Vraylar 3mg sent to pharmacy.
[2019-03-18] MEDS: DOCUSATE SODIUM 100 MG CAPSULE. PO SCH (21:00)
[2019-03-18] MEDS: clonazePAM 0.5 MG TABLET PO SCH (21:30)
[2019-03-19 03:00] VITALS: BP 96/56
[2019-03-19 07:00] VITALS: BP 96/63
[2019-03-19] MEDS ORDERED: ENOXAPARIN 40 MG/0.4 ML SYRINGE. SQ SCH (08:00)
[2019-03-19] MEDS: POLYETHYLENE GLYCOL 3350 17 GM PACKET. PO SCH (08:16)
[2019-03-19] MEDS: DOCUSATE SODIUM 100 MG CAPSULE. PO SCH (08:16)
[2019-03-19] MEDS: clonazePAM 0.5 MG TABLET PO SCH (08:45)
[2019-03-19] MEDS: cefTRIAXone IV Push 1 GM VIAL. IVP SCH (08:45)
[2019-03-19] MEDS: oxyCODONE/APAP 5/325 1 TAB TABLET PO PRN ×2 (08:48→13:35)
[2019-03-19 11:00] VITALS: BP 92/51
[2019-03-19] MEDS: IV NORMAL SALINE 1000ML BAG 1,000 ML IV SCH (12:05)
--- NOTE | 2019-03-19 12:17 | PDOC ---
SURGICAL PROGRESS NOTE Subjective sleepy "pain" Vital Signs Vital Signs Date Time Temp Pulse Resp B/P (MAP) Pulse Ox O2 Delivery O2 Flow Rate FiO2 03/19/19 11:00 98.2 63 18 92/51 (65) 98 Room Air 98.2 03/18/19 12:03 8 I&O Intake and Output 03/19/19 07:00 Intake Total 1650 ml Output Total 280 ml Balance 1370 ml Intake Oral 300 ml IV Total 1350 ml Output Urine Total 275 ml Estimated Blood Loss 5 ml # Voids 4 PATIENT HAS A VALERO: No General: Other (sleepy) Abdomen: Soft Labs Laboratory Tests Test 03/18/19 03:45 03/18/19 03:55 Urine Collection Type Unknown Urine Color Yellow Urine Clarity Cloudy Urine pH 5.5 Urine Specific [place] 1.025 Urine Protein Negative mg/dL (NEG-TRACE) Urine Glucose (UA) Negative mg/dL (NEG) Urine Ketones (Stick) Negative mg/dL (NEG) Urine Blood Negative (NEG) Urine Nitrite Positive (NEG) Urine Bilirubin Negative (NEG) Urine Urobilinogen Dipstick 1.0 mg/dL (0.2 mg/dL) Urine Leukocyte Esterase Moderate (NEG) Urine RBC 0 /HPF (0-2) Urine WBC 11-20 /HPF (0-4) Urine Squamous Epithelial Cells Few /LPF Urine Calcium Phosphate Crystals /HPF Urine Bacteria Many /HPF (0-FEW) Urine Mucus Mod /LPF White Blood Count 8.5 x10^3/uL (4.0-11.0) Red Blood Count 4.48 x10^6/uL (3.50-5.40) Hemoglobin 13.6 g/dL (12.0-15.5) Hematocrit 40.7 % (36.0-47.0) Mean Corpuscular Volume 91 fL (79-100) Mean Corpuscular Hemoglobin 30 pg (25-35) Mean Corpuscular Hemoglobin Concent 33 g/dL (31-37) Red Cell Distribution Width 12.6 % (11.5-14.5) Platelet Count 384 x10^3/uL (140-400) Neutrophils (%) (Auto) 48 % (31-73) Lymphocytes (%) (Auto) 37 % (24-48) Monocytes (%) (Auto) 10 % (0-9) Eosinophils (%) (Auto) 4 % (0-3) Basophils (%) (Auto) 1 % (0-3) Neutrophils # (Auto) 4.1 x10^3/uL (1.8-7.7) Lymphocytes # (Auto) 3.2 x10^3/uL (1.0-4.8) Monocytes # (Auto) 0.9 x10^3/uL (0.0-1.1) Eosinophils # (Auto) 0.3 x10^3/uL (0.0-0.7) Basophils # (Auto) 0.1 x10^3/uL (0.0-0.2) Maternal Serum HCG Beta Subunit 1 mIU/mL (0-5) Sodium Level 145 mmol/L (136-145) Potassium Level 4.1 mmol/L (3.5-5.1) Chloride Level 108 mmol/L (98-107) Carbon Dioxide Level 29 mmol/L (21-32) Anion Gap 8 (6-14) Blood Urea Nitrogen 16 mg/dL (7-20) Creatinine 0.8 mg/dL (0.6-1.0) Estimated GFR (Cockcroft-Gault) 76.6 BUN/Creatinine Ratio 20 (6-20) Glucose Level 101 mg/dL (70-99) Calcium Level 8.9 mg/dL (8.5-10.1) Total Bilirubin 0.1 mg/dL (0.2-1.0) Aspartate Amino Transf (AST/SGOT) 20 U/L (15-37) Alanine Aminotransferase (ALT/SGPT) 20 U/L (14-59) Alkaline Phosphatase 120 U/L (46-116) Total Protein 6.9 g/dL (6.4-8.2) Albumin 3.4 g/dL (3.4-5.0) Albumin/Globulin Ratio 1.0 (1.0-1.7) Lipase 170 U/L (73-393) Assessment/Plan POD 1 l/s appendectomy continue supportive care possible dismissal later today BEV MODI MD Mar 19, 2019 12:17
[2019-03-19] MEDS: POTASSIUM CL 20MEQ-0.45% NACL 1,000 ML IV SCH (13:05)
[2019-03-19] MEDS ORDERED: OXYC1TAB15 PO (13:45)
[2019-03-19] MEDS ORDERED: POLY17PO28 PO (13:45)
--- NOTE | 2019-03-19 13:45 | PDOC ---
PROGRESS NOTES Chief Complaint Chief Complaint acute abdominal pain acute appendicitis UTI sepsis weakness bipolar disorder, seems stable tobacco use disorder History of Present Illness History of Present Illness Ms. Boyd, is a 48 year old female, admit with acute abd pain. Has hx of bipolar disorder p/w lower abdo discomfort vomting nausea. has been constipated took milk of magnesium at home, found with large volume loose stool in the bathroom and acute appendicitis. To OR on 03/18/19 for appy. Seen ambulating in the [facility], asking to go to cafeteria with her family. Had some abdominal pain after eating taiwanese fries and ketchup today. No CP or SOB. Vitals Vitals Vital Signs Date Time Temp Pulse Resp B/P (MAP) Pulse Ox O2 Delivery O2 Flow Rate FiO2 03/19/19 13:35 Room Air 03/19/19 11:00 98.2 63 18 92/51 (65) 98 98.2 03/18/19 12:03 8 Physical Exam General: Other (sleepy) Heart: Regular rate Abdomen: Soft Extremities: No clubbing, Normal pulses Skin: No rashes, No breakdown, No significant lesion Comment Review of Relevant I have reviewed the following items mingo (where applicable) has been applied. Labs Laboratory Tests Test 03/18/19 03:45 03/18/19 03:55 Urine Collection Type Unknown Urine Color Yellow Urine Clarity Cloudy Urine pH 5.5 Urine Specific [place] 1.025 Urine Protein Negative mg/dL (NEG-TRACE) Urine Glucose (UA) Negative mg/dL (NEG) Urine Ketones (Stick) Negative mg/dL (NEG) Urine Blood Negative (NEG) Urine Nitrite Positive (NEG) Urine Bilirubin Negative (NEG) Urine Urobilinogen Dipstick 1.0 mg/dL (0.2 mg/dL) Urine Leukocyte Esterase Moderate (NEG) Urine RBC 0 /HPF (0-2) Urine WBC 11-20 /HPF (0-4) Urine Squamous Epithelial Cells Few /LPF Urine Calcium Phosphate Crystals /HPF Urine Bacteria Many /HPF (0-FEW) Urine Mucus Mod /LPF White Blood Count 8.5 x10^3/uL (4.0-11.0) Red Blood Count 4.48 x10^6/uL (3.50-5.40) Hemoglobin 13.6 g/dL (12.0-15.5) Hematocrit 40.7 % (36.0-47.0) Mean Corpuscular Volume 91 fL (79-100) Mean Corpuscular Hemoglobin 30 pg (25-35) Mean Corpuscular Hemoglobin Concent 33 g/dL (31-37) Red Cell Distribution Width 12.6 % (11.5-14.5) Platelet Count 384 x10^3/uL (140-400) Neutrophils (%) (Auto) 48 % (31-73) Lymphocytes (%) (Auto) 37 % (24-48) Monocytes (%) (Auto) 10 % (0-9) Eosinophils (%) (Auto) 4 % (0-3) Basophils (%) (Auto) 1 % (0-3) Neutrophils # (Auto) 4.1 x10^3/uL (1.8-7.7) Lymphocytes # (Auto) 3.2 x10^3/uL (1.0-4.8) Monocytes # (Auto) 0.9 x10^3/uL (0.0-1.1) Eosinophils # (Auto) 0.3 x10^3/uL (0.0-0.7) Basophils # (Auto) 0.1 x10^3/uL (0.0-0.2) Maternal Serum HCG Beta Subunit 1 mIU/mL (0-5) Sodium Level 145 mmol/L (136-145) Potassium Level 4.1 mmol/L (3.5-5.1) Chloride Level 108 mmol/L (98-107) Carbon Dioxide Level 29 mmol/L (21-32) Anion Gap 8 (6-14) Blood Urea Nitrogen 16 mg/dL (7-20) Creatinine 0.8 mg/dL (0.6-1.0) Estimated GFR (Cockcroft-Gault) 76.6 BUN/Creatinine Ratio 20 (6-20) Glucose Level 101 mg/dL (70-99) Calcium Level 8.9 mg/dL (8.5-10.1) Total Bilirubin 0.1 mg/dL (0.2-1.0) Aspartate Amino Transf (AST/SGOT) 20 U/L (15-37) Alanine Aminotransferase (ALT/SGPT) 20 U/L (14-59) Alkaline Phosphatase 120 U/L (46-116) Total Protein 6.9 g/dL (6.4-8.2) Albumin 3.4 g/dL (3.4-5.0) Albumin/Globulin Ratio 1.0 (1.0-1.7) Lipase 170 U/L (73-393) Medications Current Medications Sodium Chloride 1,000 ml @ 1,000 mls/hr 1X ONCE IV Last administered on 03/18/19at 04:25; Start 03/18/19 at 04:15; Stop 03/18/19 at 05:14; Status DC Ondansetron HCl (Zofran) 4 mg 1X ONCE IV Last administered on 03/18/19at 04:24; Start 03/18/19 at 04:15; Stop 03/18/19 at 04:16; Status DC Fentanyl Citrate (Fentanyl 2ml Vial) 50 mcg 1X ONCE IV Last administered on 03/18/19at 04:24; Start 03/18/19 at 04:15; Stop 03/18/19 at 04:16; Status DC Fentanyl Citrate (Fentanyl 2ml Vial) 50 mcg 1X ONCE IV Last administered on 03/18/19at 05:50; Start 03/18/19 at 05:30; Stop 03/18/19 at 05:31; Status DC Trimethoprim/ Sulfamethoxazole (Bactrim Ds) 1 tab 1X ONCE PO Last administered on 03/18/19at 05:49; Start 03/18/19 at 05:45; Stop 03/18/19 at 05:46; Status DC Iohexol (Omnipaque 300 Mg/ml) 75 ml 1X ONCE IV Last administered on 03/18/19at 05:46; Start 03/18/19 at 05:45; Stop 03/18/19 at 05:57; Status DC Info (CONTRAST GIVEN -- Rx MONITORING) 1 each PRN DAILY PRN MC SEE COMMENTS; Start 03/18/19 at 06:00; Stop 03/20/19 at 05:59 Metronidazole 100 ml @ 100 mls/hr 1X ONCE IV Last administered on 03/18/19at 07:42; Start 03/18/19 at 06:30; Stop 03/18/19 at 07:29; Status DC Ondansetron HCl (Zofran) 4 mg PRN Q8HRS PRN IV NAUSEA/VOMITING; Start 03/18/19 at 06:45; Stop 03/18/19 at 09:00; Status DC Fentanyl Citrate (Fentanyl 2ml Vial) 50 mcg PRN Q2HR PRN IV PAIN Last administered on 03/18/19at 07:42; Start 03/18/19 at 06:45; Stop 03/19/19 at 06:44; Status DC Ceftriaxone Sodium (Rocephin) 1 gm Q24H IVP Last administered on 03/19/19at 08:45; Start 03/18/19 at 09:00 Docusate Sodium (Colace) 100 mg DAILY PO ; Start 03/18/19 at 09:00; Stop 03/18/19 at 15:56; Status DC Polyethylene Glycol (miraLAX PACKET) 17 gm PRN DAILY PRN PO CONSTIPATION; Start 03/18/19 at 09:00 Polyethylene Glycol (miraLAX PACKET) 17 gm DAILY PO ; Start 03/18/19 at 09:00 Cefazolin Sodium/ Dextrose 50 ml @ 100 mls/hr 1X PREOP PRN IV protocol; Start 03/18/19 at 10:00; Stop 03/18/19 at 09:07; Status DC Saliva Substitute (Biotene Moisturizing Mouth) 2 spray PRN Q15MIN PRN PO DRY MOUTH; Start 03/18/19 at 09:00 Sodium Chloride 1,000 ml @ 125 mls/hr 1X ONCE IV Last administered on 03/18/19at 09:45; Start 03/18/19 at 09:00; Stop 03/18/19 at 16:59; Status DC Morphine Sulfate (Morphine Sulfate) 4 mg PRN Q2HR PRN IV MODERATE TO SEVERE PAIN Last administered on 03/18/19at 17:37; Start 03/18/19 at 09:00 Nicotine (Nicoderm Cq 21mg) 1 patch PRN DAILY PRN TD SMOKING CESSATION; Start 03/18/19 at 09:15 Nicotine Polacrilex (Nicorette Gum) 1 each PRN Q1HR PRN BC SMOKING CESSATION; Start 03/18/19 at 09:15 Enoxaparin Sodium (Lovenox Per Pharmacy Prophylaxis Dosing) 1 each PRN DAILY PRN MC SEE COMMENTS; Start 03/19/19 at 08:00 Enoxaparin Sodium (Lovenox 40mg Syringe) 40 mg Q24H SQ Last administered on 03/19/19at 08:35; Start 03/19/19 at 08:00 Bupivacaine HCl/ Epinephrine Bitart (Sensorcain-Epi 0.5%-1:[id number] Mpf) 30 ml 1X ONCE INJ Last administered on 03/18/19at 10:58; Start 03/18/19 at 10:00; Stop 03/18/19 at 10:03; Status DC Ondansetron HCl (Zofran) 4 mg PRN Q6HRS PRN IV NAUSEA/VOMITING; Start 03/18/19 at 10:00; Stop 03/18/19 at 20:00; Status DC Fentanyl Citrate (Fentanyl 2ml Vial) 25 mcg PRN Q5MIN PRN IV MILD PAIN 1-3; Start 03/18/19 at 10:00; Stop 03/18/19 at 20:00; Status DC Fentanyl Citrate (Fentanyl 2ml Vial) 50 mcg PRN Q5MIN PRN IV MODERATE TO SEVERE PAIN Last administered on 03/18/19at 12:10; Start 03/18/19 at 10:00; Stop 03/18/19 at 20:00; Status DC Morphine Sulfate (Morphine Sulfate) 1 mg PRN Q10MIN PRN IV SEVERE PAIN 7-10; Start 03/18/19 at 10:00; Stop 03/18/19 at 20:00; Status DC Ringer's Solution 1,000 ml @ 30 mls/hr Q24H IV Last administered on 03/18/19at 10:45; Start 03/18/19 at 09:50; Stop 03/18/19 at 21:49; Status DC Lidocaine HCl (Xylocaine-Mpf 1% 2ml Vial) 2 ml PRN 1X PRN ID PRIOR TO IV START; Start 03/18/19 at 10:00; Stop 03/18/19 at 20:00; Status DC Hydromorphone HCl (Dilaudid) 0.5 mg PRN Q10MIN PRN IV SEV PAIN, Second choice; Start 03/18/19 at 10:00; Stop 03/18/19 at 20:00; Status DC Prochlorperazine Edisylate (Compazine) 5 mg PACU PRN PRN IV NAUSEA, MRX1 Last administered on 03/18/19at 12:05; Start 03/18/19 at 10:00; Stop 03/18/19 at 20:00; Status DC Midazolam HCl (Versed) 2 mg STK-MED ONCE .ROUTE ; Start 03/18/19 at 10:05; Stop 03/18/19 at 10:06; Status DC Fentanyl Citrate (Fentanyl 2ml Vial) 100 mcg STK-MED ONCE .ROUTE ; Start 03/18/19 at 10:06; Stop 03/18/19 at 10:06; Status DC Succinylcholine Chloride (Anectine) 200 mg STK-MED ONCE .ROUTE ; Start 03/18/19 at 10:06; Stop 03/18/19 at 10:06; Status DC Rocuronium [place] (Zemuron) 50 mg STK-MED ONCE .ROUTE ; Start 03/18/19 at 10:06; Stop 03/18/19 at 10:06; Status DC Dexamethasone Sodium Phosphate (Decadron) 4 mg STK-MED ONCE .ROUTE ; Start 03/18/19 at 10:06; Stop 03/18/19 at 10:06; Status DC Ondansetron HCl (Zofran) 4 mg STK-MED ONCE .ROUTE ; Start 03/18/19 at 10:06; Stop 03/18/19 at 10:06; Status DC Lidocaine HCl (Lidocaine Pf 2% Vial) 5 ml STK-MED ONCE .ROUTE ; Start 03/18/19 at 10:06; Stop 03/18/19 at 10:06; Status DC Propofol 20 ml @ As Directed STK-MED ONCE IV ; Start 03/18/19 at 10:06; Stop 03/18/19 at 10:06; Status DC Glycopyrrolate (Robinul) 1 mg STK-MED ONCE .ROUTE ; Start 03/18/19 at 11:39; Stop 03/18/19 at 11:39; Status DC Neostigmine Methylsulfate (Neostigmine Methylsulfate) 5 mg STK-MED ONCE .ROUTE ; Start 03/18/19 at 11:39; Stop 03/18/19 at 11:39; Status DC Fentanyl Citrate (Fentanyl 2ml Vial) 100 mcg STK-MED ONCE .ROUTE ; Start 03/18/19 at 11:42; Stop 03/18/19 at 11:42; Status DC Prochlorperazine Edisylate (Compazine) 10 mg STK-MED ONCE .ROUTE ; Start 03/18/19 at 11:42; Stop 03/18/19 at 11:42; Status DC Sevoflurane (Ultane) 60 ml STK-MED ONCE IH ; Start 03/18/19 at 11:58; Stop 03/18/19 at 11:58; Status DC Enoxaparin Sodium (Lovenox 40mg Syringe) 30 mg Q24H SQ ; Start 03/18/19 at 12:15; Status UNV Sodium Chloride (Normal Saline Flush) 3 ml QSHIFT PRN IV AFTER MEDS AND BLOOD DRAWS; Start 03/18/19 at 12:15 Potassium Chloride/Sodium Chloride 1,000 ml @ 80 mls/hr [id number] IV Last administered on 03/18/19at 21:32; Start 03/18/19 at 12:05 Dextrose (Dextrose 50%-Water Syringe) 12.5 gm PRN Q15MIN PRN IV SEE COMMENTS; Start 03/18/19 at 12:15 Oxycodone/ Acetaminophen (Percocet 5/325) 1 tab PRN Q4HRS PRN PO MILD PAIN, 1ST CHOICE Last administered on 03/19/19at 13:35; Start 03/18/19 at 12:15 Naloxone HCl (Narcan) 0.4 mg PRN Q2MIN PRN IV SEE INSTRUCTIONS; Start 03/18/19 at 12:15 Sodium Chloride 1,000 ml @ 25 mls/hr Q24H IV ; Start 03/18/19 at 12:05 Hydromorphone HCl (Dilaudid) 0.4 mg Q4HRS PRN IV PAIN; Start 03/18/19 at 12:15 Docusate Sodium (Colace) 100 mg BID PO ; Start 03/18/19 at 21:00 Ondansetron HCl (Zofran) 4 mg PRN Q6HRS PRN IV NAUESA, 1ST CHOICE; Start 03/18/19 at 12:15 Clonazepam (KlonoPIN) 1 mg BID PO Last administered on 03/18/19at 21:30; Start 03/18/19 at 21:00 Non-Formulary Medication ([Vyaylar] ) 3 mg HS PO ; Start 03/18/19 at 21:00 Info (FLU VACCINE SCREEN per RX) 1 each PRN 1X PRN MC SEE COMMENTS; Start 03/18/19 at 15:30; Status UNV Influenza Virus Vaccine Quadrival (Afluria Quad 2019-20 (3yr Up) Syringe) 0.5 ml ONCE ONCE VAX IM Last administered on 03/19/19at 08:39; Start 03/18/19 at 15:30; Stop 03/18/19 at 15:31; Status DC Active Scripts Active Reported [Vyaylar] 3 Mg PO HS Clonazepam 1 Mg Tablet 1 Mg PO BID Vitals/I & O Vital Sign - Last 24 Hours 03/18/19 03/18/19 03/18/19 03/18/19 13:45 14:15 14:45 15:00 Temp 97.9 97.9 97.9 97.9 Pulse 50 55 58 58 Resp 14 14 16 B/P (MAP) 104/66 (79) 121/64 (83) 121/64 (83) Pulse Ox 97 97 98 98 O2 Delivery Room Air Room Air Room Air Room Air 03/18/19 03/18/19 03/18/19 03/18/19 15:45 16:45 17:37 19:00 Temp 98.1 98.1 99.8 98.1 98.1 99.8 Pulse 55 56 91 Resp 14 14 18 B/P (MAP) 116/60 (78) 112/66 (81) 117/76 (90) Pulse Ox 98 98 96 O2 Delivery Room Air Room Air Room Air Room Air 03/18/19 03/18/19 03/19/19 03/19/19 20:00 23:00 03:00 07:00 Temp 97.9 97.9 97.6 97.9 97.9 97.6 Pulse 63 63 62 Resp 18 18 18 B/P (MAP) 97/68 (78) 96/56 (69) 96/63 (74) Pulse Ox 98 97 98 O2 Delivery Room Air Room Air Room Air Room Air 03/19/19 03/19/19 03/19/19 03/19/19 07:25 08:48 11:00 13:35 Temp 98.2 98.2 Pulse 63 Resp 18 B/P (MAP) 92/51 (65) Pulse Ox 98 O2 Delivery Room Air Room Air Room Air Room Air Intake and Output 03/18/19 03/18/19 03/19/19 15:00 23:00 07:00 Intake Total 1350 ml 300 ml Output Total 280 ml Balance 1070 ml 300 ml CLARK RANDOLPH MD Mar 19, 2019 13:45
[2019-03-19] MEDS ORDERED: CEFU500T46 PO (14:31)
--- NOTE | 2019-03-19 14:31 | NUR ---
Pt. stating she is ready to d/c home. Dr. Jurado paged re: d/c orders.
--- NOTE | 2019-03-19 14:32 | PDOC3 ---
Discharge Summary Visit Information Date of Admission: Mar 18, 2019 Date of Discharge: Mar 19, 2019 Admitting Diagnosis: Acute appendicitis Final Diagnosis Acute appendicitis Brief Hospital Course Allergies Allergies Coded Allergies Type Severity Reaction Last Updated Verified Penicillins Allergy Intermediate 03/18/19 Yes Vital Signs Vital Signs Date Time Temp Pulse Resp B/P (MAP) Pulse Ox O2 Delivery O2 Flow Rate FiO2 03/19/19 13:35 Room Air 03/19/19 11:00 98.2 63 18 92/51 (65) 98 98.2 03/18/19 12:03 8 Lab Results Laboratory Tests Test 03/18/19 03:45 03/18/19 03:55 Urine Collection Type Unknown Urine Color Yellow Urine Clarity Cloudy Urine pH 5.5 Urine Specific [place] 1.025 Urine Protein Negative mg/dL (NEG-TRACE) Urine Glucose (UA) Negative mg/dL (NEG) Urine Ketones (Stick) Negative mg/dL (NEG) Urine Blood Negative (NEG) Urine Nitrite Positive (NEG) Urine Bilirubin Negative (NEG) Urine Urobilinogen Dipstick 1.0 mg/dL (0.2 mg/dL) Urine Leukocyte Esterase Moderate (NEG) Urine RBC 0 /HPF (0-2) Urine WBC 11-20 /HPF (0-4) Urine Squamous Epithelial Cells Few /LPF Urine Calcium Phosphate Crystals /HPF Urine Bacteria Many /HPF (0-FEW) Urine Mucus Mod /LPF White Blood Count 8.5 x10^3/uL (4.0-11.0) Red Blood Count 4.48 x10^6/uL (3.50-5.40) Hemoglobin 13.6 g/dL (12.0-15.5) Hematocrit 40.7 % (36.0-47.0) Mean Corpuscular Volume 91 fL (79-100) Mean Corpuscular Hemoglobin 30 pg (25-35) Mean Corpuscular Hemoglobin Concent 33 g/dL (31-37) Red Cell Distribution Width 12.6 % (11.5-14.5) Platelet Count 384 x10^3/uL (140-400) Neutrophils (%) (Auto) 48 % (31-73) Lymphocytes (%) (Auto) 37 % (24-48) Monocytes (%) (Auto) 10 % (0-9) Eosinophils (%) (Auto) 4 % (0-3) Basophils (%) (Auto) 1 % (0-3) Neutrophils # (Auto) 4.1 x10^3/uL (1.8-7.7) Lymphocytes # (Auto) 3.2 x10^3/uL (1.0-4.8) Monocytes # (Auto) 0.9 x10^3/uL (0.0-1.1) Eosinophils # (Auto) 0.3 x10^3/uL (0.0-0.7) Basophils # (Auto) 0.1 x10^3/uL (0.0-0.2) Maternal Serum HCG Beta Subunit 1 mIU/mL (0-5) Sodium Level 145 mmol/L (136-145) Potassium Level 4.1 mmol/L (3.5-5.1) Chloride Level 108 mmol/L (98-107) Carbon Dioxide Level 29 mmol/L (21-32) Anion Gap 8 (6-14) Blood Urea Nitrogen 16 mg/dL (7-20) Creatinine 0.8 mg/dL (0.6-1.0) Estimated GFR (Cockcroft-Gault) 76.6 BUN/Creatinine Ratio 20 (6-20) Glucose Level 101 mg/dL (70-99) Calcium Level 8.9 mg/dL (8.5-10.1) Total Bilirubin 0.1 mg/dL (0.2-1.0) Aspartate Amino Transf (AST/SGOT) 20 U/L (15-37) Alanine Aminotransferase (ALT/SGPT) 20 U/L (14-59) Alkaline Phosphatase 120 U/L (46-116) Total Protein 6.9 g/dL (6.4-8.2) Albumin 3.4 g/dL (3.4-5.0) Albumin/Globulin Ratio 1.0 (1.0-1.7) Lipase 170 U/L (73-393) Brief Hospital Course Ms. Boyd, is a 48 year old female, admit with acute abd pain. Has hx of bipolar disorder p/w lower abdominal discomfort vomiting nausea. has been constipated took milk of magnesium at home, found with large volume loose stool in the ba [facility] and acute appendicitis. To OR on 03/18/19 for appy. Seen ambulating in the [facility], asking to go to cafeteria with her family. Had some abdominal pain after eating [place] fries and ketchup today. No CP or SOB. Greater than 30 minutes spent on d/c acute abdominal pain acute appendicitis UTI sepsis weakness bipolar disorder, seems stable tobacco use disorder Discharge Information Condition at Discharge: Improved Follow Up: Weeks (1) Disposition/Orders: D/C to Home Scheduled Clonazepam (Clonazepam) 1 Mg Tablet, 1 MG PO BID for anxiety, (Reported) Entered as Reported by: ZHANNA JOHNSON on 03/18/191106 Last Action: Converted on 03/18/191413 by MELIZA MANCUSO Polyethylene Glycol 3350 (Polyethylene Glycol 3350) 17 Gm Powd.pack, 17 GM PO DAILY for constipation for 30 Days, #30 Prescribed by: CLARK ARNDOLPH MD on 03/19/19 1345 [Vyaylar] , 3 MG PO HS for schizophrenia, (Reported) Entered as Reported by: ZHANNA JOHNSON on 03/18/191106 Last Action: Converted on 03/18/191413 by MELIZA MANCUSO Scheduled PRN Oxycodone/Apap 5-325 (Percocet 5-325 Mg Tablet ) 1 Each Tablet, 1 TAB PO PRN Q6HRS PRN for MILD PAIN, 1ST CHOICE for 3 Days, #8 Prescribed by: CLARK RANDOLPH MD on 03/19/19 8243 CLARK RANDOLPH MD Mar 19, 2019 14:32
[2019-03-19 15:00] VITALS: BP 107/67
--- NOTE | 2019-03-19 15:41 | NUR ---
Pt discharged to home with Rx, pt and friend Dejah verbalized understanding of discharge instructions. pt's home med Vraylar returned to pt's friend Dejah.
--- NOTE | 2019-03-21 18:06 | PATHOLOGY ---
[facility] Accession Number: [id number] . 01 Material submitted: . appendix - APPENDIX . 01 Clinical history: . Acute appendicitis . 02 Diagnosis: Appendix, laparoscopic appendectomy: - No significant pathologic abnormalities. LBQ 03/21/2019 1415 Local . 02 Comment: The appendiceal mucosa appears intact and shows no evidence of ulceration. There is no acute inflammatory cell infiltrate identified within the appendiceal fibromuscular wall. There is no evidence of malignancy. (JPM/db; 03/21/2019) . 02 Electronically signed: . Nate Fitzpatrick MD, Pathologist NPI- [id number] . 01 Gross description: . Received in formalin, labeled "Oliver, Melissa, appendix", is an intact appendix (6.7 cm length x 0.7 cm diameter) and attached scant mesoappendix. The proximal resection margin is closed by a linear staple line 1.0 cm with an average 0.1 cm width. The staple line and the adjacent serosa is inked black. The serosa is daniel-brown and with no perforation. The lumen dilated and filled with soft fecal material and no discrete fecalith. The wall has an average thickness of 0.1 cm. Representatively submitted in A1. ([facility]; 03/20/2019) [facility] 03/20/2019 1840 Local . 02 Pathologist provided ICD-10: K35.80 . 02 CPT . 035980 Specimen Comment: A courtesy copy of this report has been sent to Specimen Comment: [phone], , . Specimen Comment: Report sent to ,DR MANCUSO / DR PEREZ Performed at: [address] [place] [address] [address] [facility] [address], [place], [place] [id number] MD Hernan Lang MD Phone: [phone] Performed at: [address] [id number] MD Nate Fitzpatrick MD Phone: [phone]
== END 2019-03-19 15:30 | disposition home or self-care (01) | DRG 854 ==
LOC: ER 03:39 → 4 NORTH 06:29
PROVIDERS: ADMIT Internal Medicine; ATTEND Internal Medicine
PROC: 0DTJ4ZZ Resection of Appendix, Percutaneous Endoscopic Approach (ICD-10-PCS; principal; 2019-03-18 10:00)
DX: A41.9 Sepsis, unspecified organism (principal); K35.80 Unspecified acute appendicitis; N39.0 Urinary tract infection, site not specified; F20.9 Schizophrenia, unspecified; F31.9 Bipolar disorder, unspecified; F41.9 Anxiety disorder, unspecified; F17.210 Nicotine dependence, cigarettes, uncomplicated; K59.00 Constipation, unspecified; Z88.0 Allergy status to penicillin; Z90.710 Acquired absence of both cervix and uterus
CPT/HCPCS: 36415; 74177; 80053; 81001; 83690; 84702; 85025; 90471; 90686; 96361; 96374; 96375; 96376; A7015; J0330; J0696; J0780; J1100; J1650; J2001; J2250; J2270; J2405; J2704; J2710; J3010; J3490; J7030; J7120; Q9967; 99285-25; G0378

== ENCOUNTER 2020-08-22 11:37 | Emergency (ER) | payer OTHER ==
[~2020-08-22] VITALS: Ht 167.6 cm; Wt 48.0 kg
[~2020-08-22 11:37] MED LIST: CEFU500T46 PO; CLON1TAB12 PO; OXYC1TAB15 PO; POLY17PO52 PO; [UNRECOGNIZED DRUG - OTHER] PO
[2020-08-22 12:03] VITALS: BP 115/80
--- NOTE | 2020-08-22 12:27 | PHYS DOC ---
Past Medical History Past Medical History: Bipolar, Schizophrenia, Other Additional Past Medical Histor: ADHD Past Surgical History: Hysterectomy, Other Additional Past Surgical Histo: HEMORRHOID REMOVAL Smoking Status: Current Every Day Smoker Alcohol Use: None Drug Use: None General Adult EDM: Chief Complaint: OTHER COMPLAINTS HPI: HPI: Patient is a 50 year old female with a history of schizophrenia, bipolar, who presents to the ED today complaining of an abscess on the right axilla that began 3 days ago. Patient denies any fever. She does not want anyone touching it. Review of Systems: Review of Systems: Constitutional: Denies fever or chills. [] Musculoskeletal: Denies back pain or joint pain. [] Integument: Reports right axilla abscess Neurologic: Denies headache, focal weakness or sensory changes. [] Psychiatric: Denies depression or anxiety. [] Heart Score: C/O Chest Pain: N/A Risk Factors: Risk Factors: DM, Current or recent (<one month) smoker, HTN, HLP, family history of CAD, obesity. Risk Scores: Score 0 - 3: 2.5% MACE over next 6 weeks - Discharge Home Score 4 - 6: 20.3% MACE over next 6 weeks - Admit for Clinical Observation Score 7 - 10: 72.7% MACE over next 6 weeks - Early Invasive Strategies Allergies: Allergies: Allergies Coded Allergies Type Severity Reaction Last Updated Verified Penicillins Allergy Intermediate 03/18/19 Yes Physical Exam: PE: Constitutional: Well developed, well nourished, no acute distress, non-toxic appearance. [] Skin: Right axilla with a slight area of induration all roughly 2 x 2 cm with surrounding 2 cm of cellulitis. There is no drainage, there is no fluctuance to the area. There is moderate tenderness to the area. The area feels warm. Exam difficult because patient keeps refusing to have the provider touch the area Back: No tenderness, no CVA tenderness. [] Extremities: No tenderness, no cyanosis, no clubbing, ROM intact, no edema. [] Neurologic: Alert and oriented X 3, normal motor function, normal sensory function, no focal deficits noted. [] Psychologic: Affect normal, judgement normal, mood normal. [] Current Patient Data: Vital Signs: Vital Signs Date Time Temp Pulse Resp B/P (MAP) Pulse Ox O2 Delivery O2 Flow Rate FiO2 08/22/20 12:03 97.8 74 16 115/80 (92) 99 Room Air 97.8 EKG: EKG: [] Radiology/Procedures: Radiology/Procedures: [] Course & Med Decision Making: Course & Med Decision Making Pertinent Labs and Imaging studies reviewed. (See chart for details) This is a 50-year-old female patient presenting to the ED today with an axilla abscess for 3 days. Recommended draining it, patient has refused. She is refusing to even have me touch it. Discharged with Bactrim. Warm compresses recommended to the area. OTC pain relievers. Provided return precautions. Tetanus updated. Dragon Disclaimer: Dragon Disclaimer: This electronic medical record was generated, in whole or in part, using a voice recognition dictation system. Departure Departure Impression: Primary Impression: Abscess of right axilla Additional Impression: Cellulitis of right axilla Disposition: 01 DC HOME SELF CARE/HOMELESS Condition: STABLE Referrals: UNKNOWN PCP NAME (PCP) follow up with your doctor in 1 week BRYSON CONRAD MD follow up in 1-2 weeks Patient Instructions: Abscess Additional Instructions: You have an abscess to the right axilla, please apply warm compresses to the area twice a day. Please take the prescribed antibiotics until completed. Come back to the ED at any point symptoms worsen Scripts Sulfamethoxazole/Trimethoprim (BACTRIM DS TABLET) 1 Each Tablet 1 TAB PO BID for 10 Days, #20 TAB 0 Refills Prov: DEANASHOKGUSTAVO APRN 08/22/20 CASSIDYNadeemGUSTAVO APRN Aug 22, 2020 12:27
[2020-08-22] MEDS ORDERED: SULF1TAB24 PO (12:30)
[2020-08-22] MEDS: SMZ/TMP 800/160MG TABLET. PO ONE (12:35)
[2020-08-22] MEDS: DIPH,PERTUSS(ACELL),TET VAC/PF 0.5 ML SYRINGE. VAX IM ONE (12:36)
== END 2020-08-22 12:41 | disposition home or self-care (01) ==
LOC: ER 11:37
DX: L02.411 Cutaneous abscess of right axilla (principal); F20.9 Schizophrenia, unspecified; F31.9 Bipolar disorder, unspecified; F90.9 Attention-deficit hyperactivity disorder, unspecified type; F17.200 Nicotine dependence, unspecified, uncomplicated; Z88.0 Allergy status to penicillin
CPT/HCPCS: 90471; 90715; 96372; 99283